=== PATIENT | male | born 1960 | race Caucasian/White ===

== ENCOUNTER → 2016-11-21 | Outpatient (CLI) | payer OTHER ==
[~2016-11-21] MED LIST: AMLODIPINE BESYL5 MG PO; B-121000 MC1 PO; BENTYL10 MG PO; BENZONATATE PO; CALCIUM CITRAT1 EAC8 PO; CARAFATE1 G PO; CIALIS5 MG PO; DESYREL100 MG PO; DIOVAN; DIOVAN HCT 80/11 TAB PO; DIOVAN80 M1 PO; DULOXETINE HCL60 M1 PO; EFFEXOR75 MG PO; ENDOCET 5-3251 EACH PO; FLOMAX0.4 M1 PO; FLONASE 0.05% N16 G1; FOLIC ACID1 MG PO; GARLIC1000 MG PO; HYDROCODON-ACE1 EAC5 PO; IBUPROFEN800 MG PO; LIBRIUM PO; LIPITOR40 MG PO; LORCET 10-6501 EACH PO; LORTAB 10-5001 EACH PO; LORTAB 101 TAB 10/5 PO; LORTAB 7.5-5001 TAB PO; NORVASC PO; NORVASC2.5 MG PO; PANTOPRAZOLE SO40 MG PO; PERCOCET 5-3251 TAB PO; PHENERGAN SUPP25 MG PR; PHENERGAN25 MG PO; PREDNISONE PO; PROTONIX; PROTONIX PO; SEROQUEL25 MG PO; SIMVASTATIN40 MG PO; SINGULAIR PO; TAMIFLU75 M1 PO; TESSALON200 MG PO; THIAMINE HCL100 MG PO; TYLENOL #3 PO; VENLAFAXINE HCL75 M1 PO; VITAMIN C500 M5 PO; VITAMIN E100 UNI2 PO; WELLBUTRIN XL150 M2 PO; XARELTO10 MG PO; ZANAFLEX2 MG PO; ZITHROMAX1 G/PKT PO
--- NOTE | ~2016-11-21 | CT92 ---
[facility]. [facility] A Service of [facility] RADIOLOGY TEXT RESULTS PATIENT: BRY YIN LOCATION: RUST : 58 UNIT #: [id number] AGE: [address]: Charmaine Villanueva MD SEX: M ORDER DR: [id number] [address] [address] [id number] O MR#: [id number] Acc #: [id number] NAME: BRY YIN : 1960 SEX: M STUDY DATE/TIME: 11/21/2016 9:20 UNIT: RUST ROOM: STUDY DESCRIPTION: CT Lower Ext Lt Wo Cont Attending Physician: Nahomi Villanueva M.D. Referring Physician: Nahomi Villanueva M.D. Ordering Physician: Nahomi Villanueva M.D. Primary Care Physician: Quinton Jama D.O. MEDICAL IMAGING REPORT This report is preliminary unless electronic signature is present. 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 Persistent pain, swelling lateral side of foot and ankle. COMPARISON CT left ankle 07/01/2016 left foot films 11/10/[address] exam was performed with one or more of the following radiation dose reduction techniques: automatic exposure control, adjustment of mA and/or kV according to patient size, and iterative reconstruction. FINDINGS Thin section axial images performed through the left foot and ankle with multiplanar reconstructed images reviewed at a workstation. Examination demonstrates 3 large partially threaded cannulated screws within the midfoot and hindfoot for triple arthrodesis. A long screw extends from the posterior inferior calcaneus across the posterior subtalar joint into the talus. No fracture or loosening of the instrumentation. There is a screw traversing from the navicular across the talonavicular joint into the body of the talus. No fracture or loosening. Third screw traverses from the anterior cuboid across the calcaneocuboid joint into the body of the calcaneus. No fracture or loosening of the screw. This screw does appear to sit proud at the superior cuboid margin about 7 mm. There is also a focal lucency within the anterior calcaneus surrounding a portion of the screw which may represent incidental bone cyst. This does not appear to represent true osseous resorption. There is considerable interdigitation of the bone across the posterior STS. [facility] A Service of [facility] RADIOLOGY TEXT RESULTS PATIENT: BRY YIN LOCATION: RUST : 58 UNIT #: [id number] AGE: [address]: Charmaine Villanueva MD SEX: M ORDER DR: subtalar joint with a small amount of contiguous marrow space. This is estimated about 25% fused. There is also some firm bony fusion across the talonavicular joint, predominately along the lateral aspect and this is estimated between 25% to 50% fused. The calcaneocuboid joint demonstrates no significant contiguous marrow space or bridging bone. This is estimated at less than 25% fused. When compared to the patient's study from June 2016, there has been no significant progression of osseous fusion. Ankle tendons unremarkable. Mild soft tissue swelling about the ankle. Fatty atrophy of the abductor digiti minimi muscle. Mild arthritic changes noted at the ankle joint. There is abutment of the distal fibula to the lateral margin of the calcaneus with a small amount of cystic change within the lateral calcaneus. One would question whether this could represent component of lateral impingement. Mild hypertrophic change noted off the posterior aspect of the distal fibula with several small ossific fragments. IMPRESSION 1. Status post hindfoot arthrodesis with intact instrumentation and no evidence of instrumentation failure. No significant progression of fusion when compared to the patient's study from June 2016. 2. Sclerosis and cystic change along the lateral aspect of the calcaneus which sits just below the distal fibula. One would question whether this could be a source of lateral impingement and contributing factor the patient's clinical symptoms. The cystic change within the lateral calcaneus does appear progressed from June 2016. 3. Mild arthritic changes ankle joint. Dictated by... Kranthi Hobson M.D. THIS IS AN ELECTRONICALLY VERIFIED REPORT Kranthi Hobson M.D. at 11/21/2016 7:04 PM JENNIFER/rojelio TD: 11/21/2016 15:19 JOB #: [id number] MEDICAL IMAGING REPORT Page 1 of 1
== END | disposition home or self-care (01) ==
LOC: SCT 09:15
DX: Z47.89 Encounter for other orthopedic aftercare (principal); Z98.890 Other specified postprocedural states
CPT/HCPCS: 73700

== ENCOUNTER 2016-12-17 21:38 | Emergency (ER) | payer OTHER ==
[~2016-12-17] VITALS: Ht 185.4 cm; Wt 99.8 kg
--- NOTE | ~2016-12-17 | CR72 ---
[facility] A Service of [facility] RADIOLOGY TEXT RESULTS PATIENT: BRY YIN LOCATION: SED : 58 UNIT #: [id number] AGE: [address]: Modesto Can MD SEX: M ORDER DR: [id number] [place] [address] [id number] E MR#: [id number] Acc #: [id number] NAME: BRY YIN : 1960 SEX: M STUDY DATE/TIME: 12/17/2016 21:57 UNIT: SED ROOM: STUDY DESCRIPTION: CR Chest Single View Portable Attending Physician: Modesto Can M.D. Ordering Physician: Modesto Can M.D. Primary Care Physician: Quinton Jama D.O. MEDICAL IMAGING REPORT This report is preliminary unless electronic signature is present. EXAM Portable chest 12/17/2016 HISTORY 56-year-old male with shortness of air and dizziness today. COMPARISON Chest 10/23/2015. FINDINGS Frontal chest demonstrates clear lungs. No pleural effusion or pneumothorax. Heart size and mediastinum are normal. Pulmonary vasculature normal. IMPRESSION No acute cardiopulmonary findings. Dictated by... Bry Castillo M.D. THIS IS AN ELECTRONICALLY VERIFIED REPORT Bry Castillo M.D. at 12/18/2016 4:03 PM DARRYL/bolivar TD: 12/18/2016 07:10 JOB #: [id number] MEDICAL IMAGING REPORT Page 1 of 1
--- NOTE | ~2016-12-17 | EKG ---
PATIENT: BRY YIN UNIT #: [id number] Ventricular Rate: 69 BPM Atrial Rate: 69 BPM P-R Interval: 126 ms QRS Duration: 96 ms Q-T Interval: 406 ms QTC Calculation(Bezet): 435 ms P Lawrence: 49 degrees Calculated R Lawrence: -2 degrees Calculated T Lawrence: 14 degrees Diagnosis Line: Normal sinus rhythm Diagnosis Line: Normal ECG Diagnosis Line: When compared with ECG of 23-OCT-2015 12:23, Diagnosis Line: No significant change was found Diagnosis Line: Confirmed by BRY RIDLEY MD ([id number]) on Diagnosis Line: 12/18/2016 12:57:15 PM INTERPRETING MD: KEYANA ANSARI
[~2016-12-17 21:38] MED LIST changes: -B-121000 MC1 PO; -CALCIUM CITRAT1 EAC8 PO; -DESYREL100 MG PO; -ENDOCET 5-3251 EACH PO; -FLOMAX0.4 M1 PO; -GARLIC1000 MG PO; -SEROQUEL25 MG PO; -VITAMIN C500 M5 PO; -VITAMIN E100 UNI2 PO; -WELLBUTRIN XL150 M2 PO
[2016-12-17 22:32] LABS: BASOPHIL% 0.9 % (0-2.5); EOSINOPHIL# 0.2 X10e3 (0-0.7); EOSINOPHIL% 4.3 % (0.0-7.0); HEMATOCRIT 35.3 % (38.0-50.0); HEMOGLOBIN 11.4 gm/dL (13.0-16.0); LYMPHOCYTE# 1.7 X10e3 (1.0-3.5); LYMPHOCYTE% 41.5 % (17.0-45.0); MEAN CELL VOLUME 91.2 FL (83-96); MEAN CORPUSCULAR HEMOGLOBIN 29.3 PG (28-34); MEAN CORPUSCULAR HGB CONC 32.2 g/dL (30-36); MEAN PLATELET VOLUME 7.1 FL (6.5-11.5); MONOCYTE# 0.3 X10e3 (0-1.0); MONOCYTE% 8.2 % (3.0-12.0); NEUTROPHIL# 1.8 X10e3 (1.5-7.1); NEUTROPHIL% 45.1 % (40-75); PLATELET COUNT 248 X10e3 (140-420); RED BLOOD COUNT 3.88 X10e (3.90-5.60); RED CELL DISTRIBUTION WIDTH 19.6 % (11.0-15.5)
[2016-12-17 22:33] LABS: DIFF IND NO
[2016-12-17 22:48] LABS: POC - CKMB 1.3 ng/mL (0.0-7.9); POC - TROPONIN <0.05 ng/mL (<=0.05)
[2016-12-17 22:51] LABS: ALBUMIN SERUM 3.7 g/dL (3.5-5.0); BILIRUBIN,TOTAL 0.4 mg/dL (0.2-2.0); CALCIUM SERUM 8.9 mg/dL (8.4-10.2); GLOM FILT RATE Estimated 83.2 mL/min (>60); PROTEIN TOTAL SERUM 6.8 g/dL (6.0-8.3)
[2016-12-17 23:16] LABS: URINE SOURCE CLEAN CATCH
[2016-12-17 23:19] LABS: URINE APPEARANCE CLEAR; URINE BLOOD NEG (NEG); URINE COLOR YELLOW; URINE GLUCOSE NEG (NORM); URINE KETONE TRACE (NEG); URINE LEUKOCYTE ESTERASE NEG (NEG); URINE NITRATE NEG (NEG); URINE PH 5.5 (5-8); URINE PROTEIN NEG (NEG); URINE SPECIFIC GRAVITY >=1.030 (1.003-1.035)
[2016-12-17 23:20] LABS: MICRO INDICATED? NO; URINE BILIRUBIN NEG (NEG)
[2016-12-17 23:29] LABS: AMPHETAMINE NEG (NEG); BARBITURATES NEG (NEG); BENZODIAZEPINES NEG (NEG); COCAINE NEG (NEG); MARIJUANA NEG (NEG); OPIATES NEG (NEG); TRICYCLIC ANTIDEPRESSANTS POS (NEG); U METHADONE NEG (NEG)
[2017-02-03] MEDS ORDERED: WELLBUTRIN XL150 M2 PO (10:25)
[2017-02-03] MEDS ORDERED: FLOMAX0.4 M1 PO (10:25)
[2017-02-03] MEDS ORDERED: AMLODIPINE BESYL5 MG PO (10:25)
[2017-02-03] MEDS ORDERED: SEROQUEL25 MG PO (10:25)
[2017-02-03] MEDS ORDERED: PROTONIX PO (10:26)
[2017-02-03] MEDS ORDERED: DESYREL100 MG PO (10:26)
[2017-02-03] MEDS ORDERED: B-121000 MC1 PO (10:27)
[2017-02-03] MEDS ORDERED: CALCIUM CITRAT1 EAC8 PO (10:28)
[2017-02-03] MEDS ORDERED: VITAMIN C500 M5 PO (10:28)
[2017-02-03] MEDS ORDERED: GARLIC1000 MG PO (10:28)
[2017-02-03] MEDS ORDERED: VITAMIN E100 UNI2 PO (10:29)
[2017-02-19] MEDS ORDERED: XARELTO10 MG PO (12:20)
[2017-02-19] MEDS ORDERED: ENDOCET 5-3251 EACH PO (12:23)
== END 2016-12-18 00:25 | disposition left against medical advice (07) ==
LOC: SED 21:38
DX: R55 Syncope and collapse (principal); R07.9 Chest pain, unspecified; F41.9 Anxiety disorder, unspecified; F32.9 Major depressive disorder, single episode, unspecified
CPT/HCPCS: 36415; 71010; 80053; 80307; 81003; 82553; 84443; 84484; 85025; 93005; 96360; 99285; G0480; J3411

== ENCOUNTER → 2017-02-03 | Outpatient (CLI) | payer OTHER ==
[~2017-02-03] MED LIST changes: +B-121000 MC1 PO; +CALCIUM CITRAT1 EAC8 PO; +DESYREL100 MG PO; +ENDOCET 5-3251 EACH PO; +FLOMAX0.4 M1 PO; +GARLIC1000 MG PO; +SEROQUEL25 MG PO; +VITAMIN C500 M5 PO; +VITAMIN E100 UNI2 PO; +WELLBUTRIN XL150 M2 PO
[2017-02-03 12:24] LABS: ALBUMIN SERUM 3.8 g/dL (3.5-5.0); BILIRUBIN,TOTAL 0.8 mg/dL (0.2-2.0); BUN/CREATININE RATIO 11.25; CALCIUM SERUM 8.8 mg/dL (8.4-10.2); CREATININE SERUM 0.8 mg/dL (0.6-1.4); GLOM FILT RATE Estimated 99.2 mL/min (>60); POTASSIUM 4.2 mmol/L (3.5-5.1); PROTEIN TOTAL SERUM 6.4 g/dL (6.0-8.3)
== END | disposition home or self-care (01) ==
LOC: CAMB 09:49
PROVIDERS: Orthopaedic Surgery
DX: Z01.812 Encounter for preprocedural laboratory examination (principal); M66.872 Spontaneous rupture of other tendons, left ankle and foot; M25.472 Effusion, left ankle; M25.572 Pain in left ankle and joints of left foot; Z98.1 Arthrodesis status
CPT/HCPCS: 36415; 80053